=== PATIENT | female | born 1975 ===

== ENCOUNTER 2017-07-06 08:31 | Inpatient (IN) | payer MEDICAID ==
[2017-07-06 08:43] VITALS: O2SAT 97; BMI 29.2
--- NOTE | 2017-07-06 08:47 | ED PDOC ---
Psych Transfer Clearance - Clearance Statement Clearance Statement: Reviewed vital signs, lab results and transfer papers. Patient clinically stable for psychiatric admission.
[2017-07-06] MEDS ORDERED: Alum-Mag Hydrox-Simethicone Susp (30 mL) PO PRN (09:47)
[2017-07-06] MEDS ORDERED: Magnesium Hydroxide Susp 30 ml UD PO PRN (09:47)
[2017-07-06] MEDS ORDERED: DiphenhydrAMINE 50 mg/ml Inj IM PRN (09:47)
--- NOTE | 2017-07-06 10:28 | PCM.BM ---
<Sharda Romero - Last Filed: 07/06/17 10:26> Treatment assets and liabiliti Patient Assests: cooperative, ADL independent, physically healthy, good past tx response Patient Liabilities: poor support system - Milieu Protocol Maintain good personal hygiene: daily Encourage regular showers, every other day Remind patient to perform daily oral care, every other day Assist patient to perform ADL's Conduct patient checks and document Observation sheet: Q15 minutes Maintain personal safety: every shift Educate patient to report safety concerns to staff, every shift Monitor environment for contraband/sharps Medication safety: Monitor for expected outcome, potential side effects: every shift, Assess barriers to learning: every shift, Assess readiness for medication education: every shift <AllieZeenat - Last Filed: 07/07/17 16:41> Treatment assets and liabiliti Patient Assests: adapts well, cooperative, ADL independent (pt currently unable to tend to ADL's fully independently secondary to acute psychosis) Patient Liabilities: live alone, poor support system Family Contact Family involvement: No known Family/SO (process description writer will continue to meet with patient to obtain necessary family contact info) Family contact: Other (pt unable to provide collateral or contact information for family/social supports) - Outside Agency Agency 1 Care involvment: Following patient during stay, Information-sharing, Other Agency contact name: [facility] [place] [place] [facility] Agency contact number: (Nat Juan)([phone]) Agency 2 Care involvment: Following patient during stay, Information-sharing, Other Agency contact name: [facility] Agency contact number: Dr. Hammond: [phone] Agency 3 Care involvment: Following patient during stay, Information-sharing, Other Agency contact name: [facility] ([place]) Agency contact number: Clemencia Torres(cash shortage investigator)([phone]) - Goals for Treatment Patient goals for treatment: Patient to continue stabilization on 3NP through medication management and group/supportive therapy. Patient to be encouraged to attend groups regularly to promote self-awareness, reality testing, and improve insight, coping skills and self-esteem. Patient to be provided with referral for appropriate level of aftercare to reduce risk of future hospitalizations and ensure safety in the community. Discharge/Continuing Care - Education Needs Education Needs: Patient Medication, Patient Coping Skills, Patient Placement options, Patient Community resources, Patient Aftercare Safety Plan - Discharge Discharge Criteria: Tolerates medication w/o severe side effects, Free of Suicidal thoughts, Free of paranoid thoughts, Free of agitation, Ability to care for self, Reduction of target symptoms Discharge to:: Home, With Family (currently unknown) - Treatment Team Participation Patient/Family/SO Statement: 07/07/17 16:45 Patient attended this mornings tx team to discuss precursors to hospitalization and collect further necessary collateral. Patient presents with sxs of acute psychosis and appears catatonic. Patient presented as internally preoccupied with thought blocking and delayed responses. Insight/Focus grossly impaired. Patient presented as depressed and anxious. Patient denied AH/VH/SI/ HI. Patient required significant engagement/reiteration in order to provide collateral. Patient presented as a poor historian and was not able to engage in reality based discussion or provide tx team with necessary collateral. Patient providing vague, conflicting collateral regarding current housing, social supports or precursors to hospitalization. However, patient did report sometimes forgetting to take medications. Patient reported living alone but having family visiting. Patient unable to elaborate. Patient reported 1 y/o has been placed in [facility] care but repeatedly stated not knowing where her 13 y/o currently is. Patient provided verbal consents for [facility] [place] [place] [facility], [facility] and [facility] but was unable to sign consent forms or tx plan. Patient required RN assistance leaving tx team room and returning to milieu. Discussed with Family/SO: No Was Patient/Family/SO present at Treatment Team Meeting: Yes <Mahogany Escobar - Last Filed: 07/09/17 12:04> - Diagnosis (1) Depression Status: Acute Interventions: psychotherapy pharmacotherapy 07/09/17 12:04
--- NOTE | 2017-07-06 10:40 | PCM.PSYCH ---
Initial Psychiatric Evaluation - Initial Psychiatric Evaluation Type of Admission: Voluntary Legal Status: Capacity Chief Complaint (in patient's own words): "I'm anxious." Patient's Reaction to Hospitalization: HPI: 41 yo female w/ h/o depression w/ psychosis, presents acutely depressed and anxious. On interview, that patient gave limited answers and stared blankly at the property underwriter at times. She denied overt AH/VH/paranoia/delusions, but seems guarded and possibly internally preoccupied. She was unable to state which medications she has taken in the past (as per chart Prozac, Seroquel and Ativan) or if she is being compliant. Denies SI/HI. +sleep/appetite disturbances. PPHx: H/o of outpatient treatment and multiple inpatient hospitalizations for depression w/ psychosis. Patient unable to provided detailed history at this time. PMHx: Denies chronic medical issues ALL: [facility] Current Medications: Active Medications Generic Name Dose Route Start Last Admin Trade Name Freq PRN Reason Stop Dose Admin Acetaminophen 650 mg 07/06/17 09:47 Tylenol 325mg Tab PO Q4 PRN Pain, moderate (4-7) Al Hydrox/Mg Hydrox/Simethicone 30 ml 07/06/17 09:47 Maalox Plus 30 Ml PO Q4 PRN Dyspepsia Diphenhydramine HCl 50 mg 07/06/17 09:47 Benadryl IM Q6 PRN Extrapyramidal S/S Unable PO Diphenhydramine HCl 50 mg 07/06/17 09:47 Benadryl PO Q6 PRN Extrapyramidal Symptoms Haloperidol 5 mg 07/06/17 09:47 Haldol PO Q4 PRN Agitation Haloperidol Lactate 5 mg 07/06/17 09:47 Haldol IM Q4 PRN Agitation, Unable to Take PO Lorazepam 2 mg 07/06/17 09:47 Ativan IM Q4 PRN Anxiety/Agitation,Unable PO Lorazepam 2 mg 07/06/17 09:47 Ativan PO Q4 PRN Anxiety/Agitation Magnesium Hydroxide 30 ml 07/06/17 09:47 Milk Of Magnesia PO HS PRN Constipation Past Psychiatric History - Past Psychiatric History Previous Treatment History: Inpatient Pertinent Medical Hx (Current Medical&Sleep Prob, Allergies): Allergies Allergy/AdvReac Type Severity Reaction Status Date / Time No Known Allergies Allergy Verified 07/05/17 16:39 FLUoxetine [Prozac] 30 mg PO DAILY #30 01/22/17 LORazepam [Ativan] 0.5 mg PO AMHS #30 tab 01/22/17 QUEtiapine [Seroquel] 100 mg PO HS #14 tab 01/22/17 Review of Systems - Psychiatric Psychiatric: Abnormal Sleep Pattern, Anhedonia, Anxiety, Change in Appetite, Depression, Difficulty Concentrating Mental Status Examination - Personal Presentation Personal Presentation: Looks stated age - Affect Affect: Blunted - Motor Activity Motor Activity: Calm - Reliability in Providing Information Reliability in Providing Information: Poor, due to altered mood - Speech Speech: Coherent - Mood Mood: Depressed, Anxious - Formal Thought Process Formal Thought Process: Other (Thought blocking) - Hallucinations/Delusions Additional comments: Denies AH/VH - Obsessions/Compulsions Obsessions: No Compulsions: No - Cognitive Functions Orientation: Person, Place, Situation, Time Sensorium: Alert Estimate of Intelligence: Average Judgement: Imparied, as evidence by: Lack of insight into illness Memory: Recent impaired, as evidence by: Inability to recall events of the day, Remote impaired as evidenced by: Inability to recall sig life events, Remote impaired as evidenced by: Inability to recall historical events - Risk Risk: Diminished functioning - Strength & Assets Inventory Strength & Assets Inventory: Cooperative DSM 5 DX - DSM 5 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 - Recommended/Plan of Treatment Treatment Recommendations and Plan of Treatment: Major Depressive Disorder w/ Psychotic Features -Admit to psychiatry unit -Will restart Prozac 20 mg PO Daily and Seroquel 50 mg PO HS; it is unclear if patient has been compliant with these medications -Obtain collateral history as the patient is a poor historian at this time -Medicine consult -Individual and group therapy -Psychoeducation Projected ELOS: 5-10 days Discharge Plan and Discharge Criteria: Discharge patient when she is psychiatrically stable - Smoking Cessation Smoking Cessation Initiated: No Reason for not providing: Not indicated
[2017-07-07 07:22] LABS: BASO % 0.5 % (0.0-2.0); EOS % 0.2 % (0.0-4.0); HEMOGLOBIN 13.1 g/dL (12.0-16.0); LYMPH # 1.7 K/uL (1.0-4.3); LYMPH % 24.8 % (20.0-40.0); MEAN CORPUSCULAR HEMOGLOBIN 30.5 pg (27.0-31.0); MEAN CORPUSCULAR HGB CONC 33.5 g/dL (33.0-37.0); MEAN PLATELET VOLUME 8.5 fl (7.2-11.7); MONO # 0.3 K/uL (0.0-0.8); MONO % 5.1 % (0.0-10.0); NEUT # 4.7 K/uL (1.8-7.0); NEUT % 69.4 % (50.0-75.0); RBC 4.28 Mil/uL (3.80-5.20); RED CELL DISTRIBUTION WIDTH 13.5 % (11.5-14.5); WHITE BLOOD COUNT 6.7 K/uL (4.8-10.8)
[2017-07-07 07:45] LABS: ALB/GLOB RATIO 1.2 (1.0-2.1); ALBUMIN 3.9 g/dL (3.5-5.0); ALT/SGPT 57 U/L (9-52); AST/SGOT 41 U/L (14-36); BLOOD UREA NITROGEN 8 mg/dl (7-17); GFR AFRICAN-AMERICAN > 60; GFR NON-AFRICAN AMERICAN > 60; HDL CHOLESTEROL 60 MG/DL (30-70)
[2017-07-07 07:57] LABS: LDL CHOLESTEROL 61 mg/dL (0-129)
[2017-07-07 08:02] LABS: T4 10.4 ug/dl (5.5-11.0)
[2017-07-07] MEDS ORDERED: Potassium Chloride 20 mEq ER Tab PO ONE (08:36)
--- NOTE | 2017-07-07 08:40 | CP.PCM.HP ---
History of Present Illness - History of Present Illness History of Present Illness: pt admitted for depression w/ psychotic features. at present pt is calm and cooperative. only complaints is intermittent foot pain. no f/c, n/v/d. bw noted. k3.4 Present on Admission - Present on Admission Any Indicators Present on Admission: No Review of Systems - Musculoskeletal Musculoskeletal: As Per HPI Past Patient History - Infectious Disease Hx of Infectious Diseases: None - Past Medical History & Family History Past Medical History?: No - Past Social History Smoking Status: Never Smoked - CARDIAC Hx Cardiac Disorders: No (denies) Hx Hypertension: No - PULMONARY Hx Respiratory Disorders: No (denies) - NEUROLOGICAL Hx Neurological Disorder: No (denies) - HEENT Hx HEENT Problems: No (denies) - RENAL Hx Chronic Kidney Disease: No (denies) - ENDOCRINE/METABOLIC Hx Endocrine Disorders: No (denies) - HEMATOLOGICAL/ONCOLOGICAL Hx Blood Disorders: No (denies) - INTEGUMENTARY Hx Dermatological Problems: No (denies) - MUSCULOSKELETAL/RHEUMATOLOGICAL Hx Falls: Yes - GASTROINTESTINAL Hx Gastrointestinal Disorders: No (denies) - GENITOURINARY/GYNECOLOGICAL Hx Genitourinary Disorders: No (denies) - PSYCHIATRIC Hx Substance Use: No - SURGICAL HISTORY Hx Surgeries: No (denies) - ANESTHESIA Hx Anesthesia: No Meds Allergies/Adverse Reactions: Allergies Allergy/AdvReac Type Severity Reaction Status Date / Time No Known Allergies Allergy Verified 07/05/17 16:39 Physical Exam - Constitutional Appears: Well, Non-toxic, No Acute Distress - Head Exam Head Exam: ATRAUMATIC, NORMAL INSPECTION, NORMOCEPHALIC - Eye Exam Eye Exam: EOMI, Normal appearance, PERRL Pupil Exam: NORMAL ACCOMODATION, PERRL - ENT Exam ENT Exam: Mucous Membranes Moist, Normal Exam - Neck Exam Neck exam: Positive for: Normal Inspection - Respiratory Exam Respiratory Exam: Clear to Auscultation Bilateral, NORMAL BREATHING PATTERN - Cardiovascular Exam Cardiovascular Exam: REGULAR RHYTHM, RRR, +S1, +S2 - GI/Abdominal Exam GI & Abdominal Exam: Normal Bowel Sounds, Soft. absent: Tenderness - Extremities Exam Extremities exam: Positive for: full ROM, normal capillary refill, normal inspection, pedal pulses present - Back Exam Back exam: NORMAL INSPECTION - Neurological Exam Neurological exam: Alert, CN II-XII Intact, Normal Gait, Oriented x3, Reflexes Normal - Psychiatric Exam Psychiatric exam: Normal Affect, Normal Mood - Skin Skin Exam: Dry, Intact, Normal Color, Warm Results - Vital Signs Recent Vital Signs: Last Vital Signs Temp 98 F 07/06/17 08:37 Pulse 94 H 07/06/17 08:37 Resp BP 143/80 07/06/17 08:37 Pulse Ox 97 07/06/17 08:37 - Labs Result Diagrams: 07/07/17 04:00 07/07/17 06:45 Labs: Laboratory Results - last 24 hr 07/07/17 07/07/17 04:00 06:45 WBC 6.7 RBC 4.28 Hgb 13.1 Hct 39.0 MCV 91.0 MCH 30.5 MCHC 33.5 RDW 13.5 Plt Count 244 MPV 8.5 Neut % (Auto) 69.4 Lymph % (Auto) 24.8 Real % (Auto) 5.1 Eos % (Auto) 0.2 Baso % (Auto) 0.5 Neut # (Auto) 4.7 Lymph # (Auto) 1.7 Real # (Auto) 0.3 Eos # (Auto) 0.0 Baso # (Auto) 0.0 Sodium 142 Potassium 3.4 L Chloride 98 Carbon Dioxide 28 Anion Gap 19 BUN 8 Creatinine 0.5 L Est GFR ( Amer) > 60 Est GFR (Non-Af Amer) > 60 Random Glucose 102 Calcium 9.0 Total Bilirubin 1.2 AST 41 H D ALT 57 H Alkaline Phosphatase 84 Total Protein 7.2 Albumin 3.9 Globulin 3.3 Albumin/Globulin Ratio 1.2 Triglycerides 44 Cholesterol 143 LDL Cholesterol Direct 61 HDL Cholesterol 60 Thyroxine (T4) 10.4 TSH 3rd Generation 1.15 Assessment & Plan (1) Severe depressive episode with psychotic symptoms in period Assessment and Plan: psych meds, interventions, therapies Status: Acute (2) Suicidal ideation Assessment and Plan: psych meds, interventions, therapies Status: Acute (3) Foot pain, bilateral Assessment and Plan: tylenol prn, will monitor Status: Acute Decision To Admit - Pt Status Changed To: Hospital Disposition Of: Inpatient - Admit Certification Admit to Inpatient:: After my assessment, the patient will require hospitalization for at least two midnights. This is because of the severity of symptoms shown, intensity of services needed, and/or the medical risk in this patient being treated as an outpatient. - . Bed Request Type: Adult Psychiatry Admitting Physician: Jessica Luna
--- NOTE | 2017-07-07 14:54 | PCM.PYCHPN ---
Psychiatric Progress Note - Psychiatric Progress Note Patient seen today, length of contact: pt evaluated discussed with team chart reviewed Patient Chief Complaint: I am sad, I do not know where my children are Problems Identified/Issues Discussed: pt evaluated with the treatment team, pt dressed in hospital gown, not attending to her personal hygiene, pt with poor eye contact, appears internally preoccupied, pt reported feeling very sad and anxious, pt thought process not goal directed and she states she does not know where her children are and that is why she is sad, pt unable to provide a lot of information, with thought blocking she denied any current suicidal or homicidal ideations she denied any command hallucinations encouraged pt to attend groups and to participate in treatment 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 Medication Change: Yes (start abilify) Medical Record Reviewed: Yes Mental Status Examination - Cognitive Function Orientation: Person, Place, Situation, Time Attention: Poor Concentration: Poor Association: Loose Fund of Knowledge: Poor Decription of patient's judgement and insights: poor insight and judgement - Mood Mood: Depressed, Anxious - Affect Affect: Constricted, Blunted, Depressed - Speech Speech: Soft - Formal Thought Process Formal Thought Process: Circumstantial, Other (Thought blocking) Psychotic Thoughts and Behaviors: thought blocking , internally preoccupied Additional comments: pt denied any current command hallucinations - Suicidal Ideation Suicidal Ideation: No - Homicidal Ideation Homicidal Ideation: No Goal/Treatment Plan - Goal/Treatment Plan Need for Continued Stay: Severe depression anxiety Progress Toward Problem(s) and Goals/Treatment Plan: discontincontinue with prozac 20mg start abilify 5mg with plan to uptitrate encourage medication compliance encourage to attend groups Estimated Date of D/C: 07/18/17
--- NOTE | 2017-07-08 17:52 | PCM.PYCHPN ---
Psychiatric Progress Note - Psychiatric Progress Note Patient seen today, length of contact: pt evaluated discussed with team chart reviewed Patient Chief Complaint: I miss my children Problems Identified/Issues Discussed: pt on evaluation more kempt and less disheveled. pt less isolative, continues to present with depressed mood and affect, poor eye contact underproductive speech, pt observed attending groups, staff reported decreased sleep but no changes in appetite, pt at times appears internally preoccupied, denied any current suicidal or homicidal ideations denied perceptual disturbances no reported side effects of medications discussed pt with treating outpatient psychiatrist,from [facility] and collateral information obtained upon pt consent DSM 5 Symptoms Update: major depression recurrent with psychotic features Medication Change: Yes (increase abilify) Medical Record Reviewed: Yes Mental Status Examination - Cognitive Function Orientation: Person, Place, Situation, Time Attention: Poor Concentration: Poor Association: Loose Fund of Knowledge: Poor Decription of patient's judgement and insights: poor insight and judgement - Mood Mood: Depressed, Anxious - Affect Affect: Constricted, Blunted, Depressed - Speech Speech: Soft - Formal Thought Process Formal Thought Process: Circumstantial, Other (Thought blocking) Psychotic Thoughts and Behaviors: thought blocking , internally preoccupied - Suicidal Ideation Suicidal Ideation: No - Homicidal Ideation Homicidal Ideation: No Goal/Treatment Plan - Goal/Treatment Plan Need for Continued Stay: Severe depression anxiety Progress Toward Problem(s) and Goals/Treatment Plan: continue with prozac 20mg increase abilifyto 5mg BID encourage medication compliance encourage to attend groups Estimated Date of D/C: 07/18/17
--- NOTE | 2017-07-09 15:57 | PCM.PYCHPN ---
Psychiatric Progress Note - Psychiatric Progress Note Patient seen today, length of contact: pt evaluated discussed with team chart reviewed Patient Chief Complaint: I am a little better Problems Identified/Issues Discussed: pt on evaluation , seen on the unit less isolative interacting with other patients speech more productive, continues to have episodes of thought blocking and starring, , continues to be tearful when talking about her children, discussed with pt srting effexor and discontinuing prozac , pt agreed pt attending groups, compliant with medications, denied any current suicidal or homicidal ideations, denied command hallucinations DSM 5 Symptoms Update: major depression with psychotic features Medication Change: Yes (start effexor) Medical Record Reviewed: Yes Mental Status Examination - Cognitive Function Orientation: Person, Place, Situation, Time Attention: Poor Concentration: Poor Association: Loose Fund of Knowledge: Poor Decription of patient's judgement and insights: poor insight and judgement - Mood Mood: Depressed, Anxious - Affect Affect: Constricted, Blunted, Depressed - Speech Speech: Soft - Formal Thought Process Formal Thought Process: Circumstantial, Other (Thought blocking) Psychotic Thoughts and Behaviors: thought blocking , internally preoccupied - Suicidal Ideation Suicidal Ideation: No - Homicidal Ideation Homicidal Ideation: No Goal/Treatment Plan - Goal/Treatment Plan Need for Continued Stay: Severe depression anxiety Progress Toward Problem(s) and Goals/Treatment Plan: discontinue prozac , effexor xr 37.5mg with plan to uptitrate, abilify 5mg BID Group and supportive therapy Estimated Date of D/C: 07/18/17
--- NOTE | 2017-07-10 14:47 | PCM.PYCHPN ---
Psychiatric Progress Note - Psychiatric Progress Note Patient seen today, length of contact: pt evaluated discussed with team chart reviewed Patient Chief Complaint: I am better but I get sleepy during the day Problems Identified/Issues Discussed: pt on evaluation , seen on the unit less isolative interacting with other patients speech more productive, pt reported drowsiness as sude effect of abilify, discussed with pt taking her abilify qhs for less sedation during the day pt continues to have episodes of thought blocking and starring, , continues to be tearful when talking about her children, discussed with pt increasing effexor pt attending groups, compliant with medications, denied any current suicidal or homicidal ideations, denied command hallucinations 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 Medication Change: Yes (increase effexor) Medical Record Reviewed: Yes Mental Status Examination - Cognitive Function Orientation: Person, Place, Situation, Time Attention: Poor Concentration: Poor Association: Loose Fund of Knowledge: Poor Decription of patient's judgement and insights: poor insight and judgement - Mood Mood: Depressed, Anxious - Affect Affect: Constricted, Blunted, Depressed - Speech Speech: Soft - Formal Thought Process Formal Thought Process: Circumstantial, Other (Thought blocking) Psychotic Thoughts and Behaviors: thought blocking , internally preoccupied - Suicidal Ideation Suicidal Ideation: No - Homicidal Ideation Homicidal Ideation: No Goal/Treatment Plan - Goal/Treatment Plan Need for Continued Stay: Severe depression anxiety Progress Toward Problem(s) and Goals/Treatment Plan: increase , effexor xr to 75mg with plan to uptitrate, abilify 10mg qhs Group and supportive therapy Estimated Date of D/C: 07/18/17
[2017-07-11] MEDS: Venlafaxine 75 mg ER Cap PO SCH (08:16)
[2017-07-11] MEDS: Risperidone M tab 0.5MG PO SCH ×2 (12:57→22:05)
--- NOTE | 2017-07-11 13:19 | PCM.PYCHPN ---
Psychiatric Progress Note - Psychiatric Progress Note Patient seen today, length of contact: pt evaluated discussed with team chart reviewed Patient Chief Complaint: I am worried about my children Problems Identified/Issues Discussed: pt evaluated with translation, pt continues to present with depressed mood and affect, tearful when talking about her children, feeling worried about them, pt however paranoid , suspicous towards staff feeling her privacy intruded when interviewed, pt also presenting with thought blocking and appears internally preoccupied, she denied any current command hallucinations, denied any current suicidal or homicidal ideations pt attending groups, compliant with medications, no current reported side effects DSM 5 Symptoms Update: major depression severe with psychotic features Medication Change: Yes (d/c abilify start risperidone) Medical Record Reviewed: Yes Mental Status Examination - Cognitive Function Orientation: Person, Place, Situation, Time Attention: Poor Concentration: Poor Association: Loose Fund of Knowledge: Poor Decription of patient's judgement and insights: poor insight and judgement - Mood Mood: Depressed, Anxious - Affect Affect: Constricted, Blunted, Depressed - Speech Speech: Soft - Formal Thought Process Formal Thought Process: Circumstantial, Other (Thought blocking) Psychotic Thoughts and Behaviors: thought blocking , internally preoccupied, denied command hallucinations - Suicidal Ideation Suicidal Ideation: No - Homicidal Ideation Homicidal Ideation: No Goal/Treatment Plan - Goal/Treatment Plan Need for Continued Stay: Severe depression anxiety Progress Toward Problem(s) and Goals/Treatment Plan: effexor xr 75mg with plan to uptitrate, discontinue abilify, start risperidone 0.5mg bid group and supportive therapy monitor pt for psychopharmacological effects and side effect profile Estimated Date of D/C: 07/18/17
[2017-07-12] MEDS: Risperidone M tab 0.5MG PO SCH ×2 (09:54→21:27)
[2017-07-12] MEDS: Venlafaxine 75 mg ER Cap PO SCH (09:54)
--- NOTE | 2017-07-12 15:48 | PCM.PYCHPN ---
Psychiatric Progress Note - Psychiatric Progress Note Patient seen today, length of contact: pt evaluated discussed with team chart reviewed Patient Chief Complaint: I miss my son Problems Identified/Issues Discussed: pt evaluated pt continues to present with depressed mood and affect, tearful when talking about her children, feeling worried about them, pt continues to be guarded and paranoid pt also presenting with thought blocking and appears internally preoccupied, she denied any current command hallucinations, denied any current suicidal or homicidal ideations pt attending groups, compliant with medications, no current reported side effects 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 Medication Change: No Medical Record Reviewed: Yes Mental Status Examination - Cognitive Function Orientation: Person, Place, Situation, Time Attention: Poor Concentration: Poor Association: Loose Fund of Knowledge: Poor Decription of patient's judgement and insights: poor insight and judgement - Mood Mood: Depressed, Anxious - Affect Affect: Constricted, Blunted, Depressed - Speech Speech: Soft - Formal Thought Process Formal Thought Process: Circumstantial, Other (Thought blocking) Psychotic Thoughts and Behaviors: thought blocking , internally preoccupied, denied command hallucinations - Suicidal Ideation Suicidal Ideation: No - Homicidal Ideation Homicidal Ideation: No Goal/Treatment Plan - Goal/Treatment Plan Need for Continued Stay: Severe depression anxiety Progress Toward Problem(s) and Goals/Treatment Plan: effexor xr 75mg with plan to uptitrate, risperidone 0.5mg bid group and supportive therapy monitor pt for psychopharmacological effects and side effect profile Estimated Date of D/C: 07/18/17
--- NOTE | 2017-07-13 10:10 | PCM.PYCHPN ---
Psychiatric Progress Note - Psychiatric Progress Note Patient seen today, length of contact: pt evaluated discussed with team chart reviewed Patient Chief Complaint: I need pampers, I think I am leaking Problems Identified/Issues Discussed: pt evaluated pt continues to present with depressed mood and affect, tearful when talking about her children, feeling worried about them, pt continues to be guarded and paranoid pt also presenting with thought blocking and appears internally preoccupied, discussed gradual increasing the dose of risperidone she denied any current command hallucinations, denied any current suicidal or homicidal ideations pt also reported leaking of urine with possible UTI discussed with pt having aurinanalysis pt attending groups, compliant with medications, no current reported side effects DSM 5 Symptoms Update: major depression with psychosis Medication Change: Yes (increase risperidone) Medical Record Reviewed: Yes Mental Status Examination - Cognitive Function Orientation: Person, Place, Situation, Time Attention: WNL Concentration: Poor Association: Loose Fund of Knowledge: Poor Decription of patient's judgement and insights: poor insight and judgement - Mood Mood: Depressed, Anxious - Affect Affect: Constricted, Blunted, Depressed - Speech Speech: Soft - Formal Thought Process Formal Thought Process: Circumstantial, Other (Thought blocking) Psychotic Thoughts and Behaviors: thought blocking , internally preoccupied, denied command hallucinations - Suicidal Ideation Suicidal Ideation: No - Homicidal Ideation Homicidal Ideation: No Goal/Treatment Plan - Goal/Treatment Plan Need for Continued Stay: Severe depression anxiety Progress Toward Problem(s) and Goals/Treatment Plan: effexor xr 75mg with plan to uptitrate, increase risperidone to 1.5mg qhs and 0.5mg daily group and supportive therapy monitor pt for psychopharmacological effects and side effect profile Estimated Date of D/C: 07/18/17
[2017-07-13] MEDS: Venlafaxine 75 mg ER Cap PO SCH (10:22)
[2017-07-13] MEDS: Risperidone M tab 0.5MG PO SCH (10:46)
[2017-07-13 16:38] LABS: SQUAMOUS EPITHIAL 11 /hpf (0-5); URINE AMORPHOUS SEDIMENT OCC /ul (<OCC); URINE BILIRUBIN NEGATIVE (NEGATIVE); URINE BLOOD NEGATIVE (NEGATIVE); URINE CLARITY TURBID (Clear); URINE COLOR YELLOW (YELLOW); URINE GLUCOSE (UA) NEG (Normal); URINE LEUKOCYTE ESTERASE NEG Leu/uL (Negative); URINE PROTEIN NEGATIVE (NEGATIVE)
[2017-07-13] MEDS: Risperidone M tab 1 MG PO SCH (21:55)
[2017-07-14] MEDS: Risperidone M tab 0.5MG PO SCH (09:07)
[2017-07-14] MEDS: Venlafaxine 75 mg ER Cap PO SCH (09:08)
[2017-07-14 14:00] LABS: SQUAMOUS EPITHIAL 11 /hpf (0-5); URINE BACTERIA RARE (<OCC); URINE BILIRUBIN NEGATIVE (NEGATIVE); URINE BLOOD NEGATIVE (NEGATIVE); URINE CLARITY CLOUDY (Clear); URINE COLOR YELLOW (YELLOW); URINE GLUCOSE (UA) >=500 mg/dL (Normal); URINE LEUKOCYTE ESTERASE NEG Leu/uL (Negative); URINE PROTEIN NEGATIVE (NEGATIVE)
--- NOTE | 2017-07-14 14:30 | PCM.PYCHPN ---
Psychiatric Progress Note - Psychiatric Progress Note Patient seen today, length of contact: pt evaluated discussed with team chart reviewed Patient Chief Complaint: I have a lot to work on with my family when I leave here Problems Identified/Issues Discussed: pt evaluated with treatment team, reported feeling dizzy, pt noted to have UTI , will be started on antibiotics after C/S is done as discussed withfamily practice, pt continues to present with depressed mood and affect, tearful when talking about her children, feeling worried about them, continues to have episodes of thought blocking, and she appears at times internally preoccupied she denies command hallucinations, risperidone increased to 1.5mg qhs, will uptitrate as needed, also will decrease trazodone to 50mg qhs DSM 5 Symptoms Update: major depression severe with psychotic features Medication Change: Yes (decrease trazodone) Medical Record Reviewed: Yes Mental Status Examination - Cognitive Function Orientation: Person, Place, Situation, Time Attention: WNL Concentration: Poor Association: Loose Fund of Knowledge: Poor Decription of patient's judgement and insights: poor insight and judgement - Mood Mood: Depressed, Anxious - Affect Affect: Constricted, Blunted, Depressed - Speech Speech: Soft - Formal Thought Process Formal Thought Process: Circumstantial, Other (Thought blocking) Psychotic Thoughts and Behaviors: thought blocking , internally preoccupied, denied command hallucinations - Suicidal Ideation Suicidal Ideation: No - Homicidal Ideation Homicidal Ideation: No Goal/Treatment Plan - Goal/Treatment Plan Need for Continued Stay: Severe depression anxiety, Discharge may exacerbated symptoms Progress Toward Problem(s) and Goals/Treatment Plan: effexor xr 75mg with plan to uptitrate, continue risperidone to 1.5mg qhs and 0.5mg daily decrease trazodone to 50mg qhs for possible orthostatic hypotension follow up on urine culture and sensitivity group and supportive therapy monitor pt for psychopharmacological effects and side effect profile Estimated Date of D/C: 07/18/17
--- NOTE | 2017-07-14 16:16 | PCM.BM ---
<Zeenat Kelley - Last Filed: 07/14/17 16:12> Treatment assets and liabiliti Patient Assests: adapts well, cooperative, ADL independent (pt currently unable to tend to ADL's fully independently secondary to acute psychosis) Patient Liabilities: live alone, poor support system - Milieu Protocol Maintain good personal hygiene: daily Encourage regular showers, every other day Remind patient to perform daily oral care, every other day Assist patient to perform ADL's Conduct patient checks and document Observation sheet: Q15 minutes Maintain personal safety: every shift Educate patient to report safety concerns to staff, every shift Monitor environment for contraband/sharps Medication safety: Monitor for expected outcome, potential side effects: every shift, Assess barriers to learning: every shift, Assess readiness for medication education: every shift Milieu Narrative: effexor xr 75mg with plan to uptitrate, continue risperidone to 1.5mg qhs and 0.5mg daily decrease trazodone to 50mg qhs for possible orthostatic hypotension follow up on urine culture and sensitivity group and supportive therapy monitor pt for psychopharmacological effects and side effect profile Family Contact Family involvement: No known Family/SO (copy writer will continue to meet with patient to obtain necessary family contact info) Family contact: Other (pt unable to provide collateral or contact information for family/social supports) - Outside Agency Agency 1 Care involvment: Following patient during stay, Information-sharing, Other Agency contact name: [facility] Agency contact number: Funmi Juan)([phone]) Agency 2 Care involvment: Following patient during stay, Information-sharing, Other Agency contact name: [facility] Agency contact number: Dr. Hammond: [phone] Agency 3 Care involvment: Following patient during stay, Information-sharing, Other Agency contact name: [facility] (Jen) Agency contact number: Clemencia Torres(case investigator)([phone]) - Goals for Treatment Patient goals for treatment: Patient to continue stabilization on 3NP through medication management and group/supportive therapy. Patient to be encouraged to attend groups regularly to promote self-awareness, reality testing, and improve insight, coping skills and self-esteem. Patient to be provided with referral for appropriate level of aftercare to reduce risk of future hospitalizations and ensure safety in the community. Discharge/Continuing Care - Education Needs Education Needs: Patient Medication, Patient Coping Skills, Patient Placement options, Patient Community resources, Patient Aftercare Safety Plan - Discharge Discharge Criteria: Tolerates medication w/o severe side effects, Free of Suicidal thoughts, Free of paranoid thoughts, Free of agitation, Ability to care for self, Reduction of target symptoms Discharge to:: Home, With Family (currently unknown) - Treatment Team Participation Patient/Family/SO Statement: effexor xr 75mg with plan to uptitrate, continue risperidone to 1.5mg qhs and 0.5mg daily decrease trazodone to 50mg qhs for possible orthostatic hypotension follow up on urine culture and sensitivity group and supportive therapy monitor pt for psychopharmacological effects and side effect profile Discussed with Family/SO: No Was Patient/Family/SO present at Treatment Team Meeting: Yes Treatment Plan Review Patient participation: Yes Family/SO/Caregiver participation: No Additional Comments: Patient has show some improvement but remains acutely psychotic. Patient presents as internally preoccupied. Patient presents with thought blocking and delayed responses. Patient irritable and suspicious on approach. patient visible on 3NP but socially withdrawn. Patient reports auditory hallucinations but was unable to elaborate on nature of AH, staring blankly at copy writer for several minutes when asked. Patient reports improvement in appetite since admission. Patient denies sleep disturbances Patient denies SI/HI and is able to contract for safety on 3NP. Patient made aware of staff availability. Patient continues to have difficulties fully engaging in reality based discussion. When asked how 3 staff/tx can help patient, patient responded with "I have to go to [place] things. Because things happened." but declined to elaborate. Patient to continue stabilization on 3NP through medication management and group/supportive therapy. Patient to be encouraged to attend groups regularly to promote self-awareness, sobriety, and improve insight , coping skills and self-esteem. Patient to be provided with referral for appropriate level of aftercare to reduce risk of future hospitalizations and ensure safety in the community. - Discharge / Continuing Care Discharge to:: Home Behavioral Health Services: Outpatient therapy, Other ([facility] and [facility]) Health Needs: Follow up care/test <Mahogany Escobar - Last Filed: 07/18/17 11:15> - Diagnosis (1) Depression Status: Acute Interventions: psychotherapy pharmacotherapy 07/18/17 11:15
[2017-07-14] MEDS: Risperidone M tab 1 MG PO SCH (21:47)
[2017-07-15] MEDS: Risperidone M tab 0.5MG PO SCH (10:40)
[2017-07-15] MEDS: Venlafaxine 75 mg ER Cap PO SCH (10:40)
--- NOTE | 2017-07-15 12:47 | PCM.PYCHPN ---
Psychiatric Progress Note - Psychiatric Progress Note Patient seen today, length of contact: pt evaluated discussed with team chart reviewed Patient Chief Complaint: I do not need to be here I am not creazy Problems Identified/Issues Discussed: pt evaluated with treatment team, presenting with irritable mood and affect, poor insight into illness requesting discharge, reporting only reason she is in hospital is because of arm pain, patient argumentative about medications, stating there is no need to be on them, pt delusional paranoid towards staff, continues to have thought blocking, denied command hallucinations denied suicidal or homicidal ideations 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 Medication Change: Yes (increase risperidone) Medical Record Reviewed: Yes Mental Status Examination - Cognitive Function Orientation: Person, Place, Situation, Time Attention: WNL Concentration: Poor Association: Loose Fund of Knowledge: Poor Decription of patient's judgement and insights: poor insight and judgement - Mood Mood: Depressed, Anxious - Affect Affect: Constricted, Blunted, Depressed - Speech Speech: Soft - Formal Thought Process Formal Thought Process: Circumstantial, Other (Thought blocking) Psychotic Thoughts and Behaviors: thought blocking , internally preoccupied, denied command hallucinations - Suicidal Ideation Suicidal Ideation: No - Homicidal Ideation Homicidal Ideation: No Goal/Treatment Plan - Goal/Treatment Plan Need for Continued Stay: Severe depression anxiety, Discharge may exacerbated symptoms Progress Toward Problem(s) and Goals/Treatment Plan: effexor xr 75mg with plan to uptitrate, increase risperidone to 2mg qhs and 0.5mg daily change trazodoneo 50mg qhs to prn for possible orthostatic hypotension follow up on urine culture and sensitivity group and supportive therapy monitor pt for psychopharmacological effects and side effect profile Estimated Date of D/C: 07/18/17
[2017-07-15] MEDS ORDERED: Risperidone M TAB 2 MG PO SCH (22:00)
[2017-07-16] MEDS: Venlafaxine 75 mg ER Cap PO SCH (08:47)
--- NOTE | 2017-07-16 08:56 | CP.PCM.PN ---
Subjective - Date & Time of Evaluation Date of Evaluation: 07/16/17 Time of Evaluation: 08:56 - Subjective Subjective: pt still psychotic. no f/c, n./v/d. pt had dysuria but no further complaints. ua wnl. c/s pending. pt c/o dizziness and left shoulder pain both has been present x yrs. pt haivng 1x episde of dizziness during eval rn for translation Objective - Vital Signs/Intake and Output Vital Signs (last 24 hours): Temp Pulse Resp BP Pulse Ox 97.3 F L 94 H 20 136/72 97 07/15/17 17:00 07/15/17 17:00 07/15/17 17:00 07/15/17 17:00 07/06/17 08:37 - Medications Medications: Current Medications Acetaminophen (Tylenol 325mg Tab) 650 mg PO Q4 PRN PRN Reason: Pain, moderate (4-7) Al Hydrox/Mg Hydrox/Simethicone (Maalox Plus 30 Ml) 30 ml PO Q4 PRN PRN Reason: Dyspepsia Diphenhydramine HCl (Benadryl) 50 mg IM Q6 PRN PRN Reason: Extrapyramidal S/S Unable PO Diphenhydramine HCl (Benadryl) 50 mg PO Q6 PRN PRN Reason: Extrapyramidal Symptoms Haloperidol (Haldol) 5 mg PO Q4 PRN PRN Reason: Agitation Haloperidol Lactate (Haldol) 5 mg IM Q4 PRN PRN Reason: Agitation, Unable to Take PO Lorazepam (Ativan) 2 mg IM Q4 PRN PRN Reason: Anxiety/Agitation,Unable PO Lorazepam (Ativan) 1 mg PO Q4 PRN PRN Reason: Anxiety Last Admin: 07/06/17 16:48 Dose: 1 mg Magnesium Hydroxide (Milk Of Magnesia) 30 ml PO HS PRN PRN Reason: Constipation Risperidone (Risperdal M-Tab) 2 mg PO HS [facility] Last Admin: 07/15/17 21:05 Dose: 2 mg Risperidone (Risperdal M-Tab) 1 mg PO DAILY [facility] Last Admin: 07/16/17 08:47 Dose: 1 mg Trazodone HCl (Desyrel) 50 mg PO HS [facility] Last Admin: 07/15/17 21:05 Dose: 50 mg Venlafaxine HCl (Effexor Xr) 75 mg PO DAILY [facility] Last Admin: 07/16/17 08:47 Dose: 75 mg - Labs Labs: 07/07/17 04:00 07/07/17 06:45 - Constitutional Appears: Well, Non-toxic, No Acute Distress - Head Exam Head Exam: ATRAUMATIC, NORMAL INSPECTION, NORMOCEPHALIC - Eye Exam Eye Exam: EOMI, Normal appearance, PERRL Pupil Exam: NORMAL ACCOMODATION, PERRL - ENT Exam ENT Exam: Mucous Membranes Moist, Normal Exam - Neck Exam Neck Exam: Full ROM, Normal Inspection. absent: Lymphadenopathy - Respiratory Exam Respiratory Exam: Clear to Ausculation Bilateral, NORMAL BREATHING PATTERN - Cardiovascular Exam Cardiovascular Exam: REGULAR RHYTHM, RRR, +S1, +S2. absent: Murmur - GI/Abdominal Exam GI & Abdominal Exam: Soft, Normal Bowel Sounds. absent: Tenderness - Extremities Exam Extremities Exam: Full ROM, Normal Capillary Refill, Normal Inspection. absent : Joint Swelling, Pedal Edema - Back Exam Back Exam: NORMAL INSPECTION - Neurological Exam Neurological Exam: Alert, Awake, CN II-XII Intact, Normal Gait, Oriented x3 - Psychiatric Exam Psychiatric exam: Normal Affect, Normal Mood - Skin Skin Exam: Dry, Intact, Normal Color, Warm Assessment and Plan (1) Severe depressive episode with psychotic symptoms in period Status: Acute (2) Suicidal ideation Status: Acute (3) Foot pain, bilateral Status: Acute - Assessment and Plan (Free Text) Assessment: (1) Severe depressive episode with psychotic symptoms in period Assessment and Plan: psych meds, interventions, therapies Status: Acute (2) Suicidal ideation Assessment and Plan: psych meds, interventions, therapies Status: Acute (3) Foot pain, bilateral Assessment and Plan: tylenol prn, will monitor Status: Acute 4-dizziness- f/u labs, neuro prn ?? neurogenic vs organic [id number] wnl, penidng c/s no further s/s
[2017-07-16] MEDS ORDERED: Risperidone M tab 1 MG PO SCH (09:00)
[2017-07-16 12:56] LABS: BASO % 0.6 % (0.0-2.0); EOS % 0.5 % (0.0-4.0); HEMOGLOBIN 14.1 g/dL (12.0-16.0); LYMPH # 1.6 K/uL (1.0-4.3); LYMPH % 33.2 % (20.0-40.0); MEAN CELL VOLUME 89.6 fl (81.0-99.0); MEAN CORPUSCULAR HEMOGLOBIN 30.8 pg (27.0-31.0); MEAN CORPUSCULAR HGB CONC 34.4 g/dL (33.0-37.0); MONO # 0.2 K/uL (0.0-0.8); NEUT # 2.9 K/uL (1.8-7.0); NEUT % 61.7 % (50.0-75.0); NRBC % 0.2 % (0.0-0.0); RBC 4.58 Mil/uL (3.80-5.20); RED CELL DISTRIBUTION WIDTH 13.1 % (11.5-14.5); WHITE BLOOD COUNT 4.7 K/uL (4.8-10.8)
[2017-07-16 13:06] LABS: ALB/GLOB RATIO 1.1 (1.0-2.1); ALBUMIN 4.3 g/dL (3.5-5.0); ALT/SGPT 43 U/L (9-52); AST/SGOT 23 U/L (14-36); BLOOD UREA NITROGEN 12 mg/dl (7-17); CALCIUM 9.6 mg/dL (8.4-10.2); GFR AFRICAN-AMERICAN > 60; GFR NON-AFRICAN AMERICAN > 60
--- NOTE | 2017-07-16 13:19 | PCM.PYCHPN ---
Psychiatric Progress Note - Psychiatric Progress Note Patient seen today, length of contact: pt evaluated discussed with team chart reviewed Patient Chief Complaint: I do not want to answer Problems Identified/Issues Discussed: pt evaluated , floridaly psychotic, guarded paranoid, evasive poor eye contact , minimal speech, refusing to communicate with staff , pt appears internally preoccupied, with thought blocking , disorganized thought process and poor insight into illness denied command hallucinations denied suicidal or homicidal ideations pt encouraged to attend groups pt continues to have urine incontinence , awaiting results of culture and sensitivity for family practice to start antibiotics, with possible contribution of UTI in the current psychotic mental status DSM 5 Symptoms Update: schizoaffective disorder Medication Change: Yes (discontinue risperidone start haldol) Medical Record Reviewed: Yes Mental Status Examination - Cognitive Function Orientation: Person, Place, Situation, Time Attention: WNL Concentration: Poor Association: Loose Fund of Knowledge: Poor Decription of patient's judgement and insights: poor insight and judgement - Mood Mood: Depressed, Anxious - Affect Affect: Constricted, Blunted, Depressed - Speech Speech: Soft - Formal Thought Process Formal Thought Process: Circumstantial, Other (Thought blocking) Psychotic Thoughts and Behaviors: thought blocking , internally preoccupied, denied command hallucinations - Suicidal Ideation Suicidal Ideation: No - Homicidal Ideation Homicidal Ideation: No Goal/Treatment Plan - Goal/Treatment Plan Need for Continued Stay: Severe depression anxiety, Discharge may exacerbated symptoms Progress Toward Problem(s) and Goals/Treatment Plan: discontinue seroquel and effexor start haldol 2mg qhs, cogentin 0.5mg qhs start prozac 20mg follow up on urine culture and sensitivity group and supportive therapy monitor pt for psychopharmacological effects and side effect profile Estimated Date of D/C: 07/18/17
[2017-07-16] MEDS: FLUoxetine Elix 20 MG/5 ML PO SCH (13:47)
[2017-07-17] MEDS: FLUoxetine Elix 20 MG/5 ML PO SCH (10:20)
--- NOTE | 2017-07-17 14:15 | PCM.PYCHPN ---
Psychiatric Progress Note - Psychiatric Progress Note Patient seen today, length of contact: pt evaluated discussed with team chart reviewed Patient Chief Complaint: I like my breakfast today Problems Identified/Issues Discussed: pt evaluated , continues to be isolative, guarded, not interacting with other peers, needs a lot of encouragement to attend groups,presenting with depressed mood and affect , thought blocking , internally preoccupied, more interactive with undersigned showing partial response to haldol pt denied any current command hallucinations, denied suicidal or homicidal ideations, limited insight into illness DSM 5 Symptoms Update: schizoaffective disorder depressed Medication Change: No Medical Record Reviewed: Yes Mental Status Examination - Cognitive Function Orientation: Person, Place, Situation, Time Attention: WNL Concentration: Poor Association: Loose Fund of Knowledge: Poor Decription of patient's judgement and insights: poor insight and judgement - Mood Mood: Depressed, Anxious - Affect Affect: Constricted, Blunted, Depressed - Speech Speech: Soft - Formal Thought Process Formal Thought Process: Circumstantial, Other (Thought blocking) Psychotic Thoughts and Behaviors: thought blocking , internally preoccupied, denied command hallucinations - Suicidal Ideation Suicidal Ideation: No - Homicidal Ideation Homicidal Ideation: No Goal/Treatment Plan - Goal/Treatment Plan Need for Continued Stay: Severe depression anxiety, Discharge may exacerbated symptoms Progress Toward Problem(s) and Goals/Treatment Plan: increase haldol to 3mg qhs, and cogentin 1 mg qhs. consider haldol decanoate on discharge increase prozac 40mg follow up on urine culture and sensitivity group and supportive therapy monitor pt for psychopharmacological effects and side effect profile Estimated Date of D/C: 07/18/17
--- NOTE | 2017-07-18 13:32 | PCM.PYCHPN ---
Psychiatric Progress Note - Psychiatric Progress Note Patient seen today, length of contact: pt evaluated discussed with team chart reviewed Patient Chief Complaint: I am better when can I go home Problems Identified/Issues Discussed: pt evaluated ,less isolative , speech more productive, better communication with staff and peers, presenting with better mood and brighter affect, thought process more clear, pt less guarded and less paranoid pt requesting discharge as she misses her children , discussed with pt starting haldol injection for better compliance, pt declined pt attending groups, compliant with medication, no reported side effects denied suicidal or homicidal ideations, denied command hallucinations, limited insight into illness DSM 5 Symptoms Update: major depression recurrent severe with psychotic fetures rule out schizoaffective disorder Medication Change: No Medical Record Reviewed: Yes Mental Status Examination - Cognitive Function Orientation: Person, Place, Situation, Time Attention: WNL Concentration: Poor Association: WNL Fund of Knowledge: Poor Decription of patient's judgement and insights: poor insight and judgement - Mood Mood: Depressed, Anxious - Affect Affect: Constricted, Blunted, Depressed - Speech Speech: Soft - Formal Thought Process Formal Thought Process: Circumstantial, Other (Thought blocking) Psychotic Thoughts and Behaviors: tpt presenting with more clear thought process, denied perceptual disturbances - Suicidal Ideation Suicidal Ideation: No - Homicidal Ideation Homicidal Ideation: No Goal/Treatment Plan - Goal/Treatment Plan Need for Continued Stay: Severe depression anxiety, Discharge may exacerbated symptoms Progress Toward Problem(s) and Goals/Treatment Plan: continue with haldol 3mg qhs, and cogentin 1 mg qhs. consider haldol decanoate on discharge increase prozac 30mg daily group and supportive therapy monitor pt for psychopharmacological effects and side effect profile adoption services manager to contact [facility] for follow up planning on discharge Estimated Date of D/C: 07/22/17
[2017-07-18 18:26] VITALS: RESP 18
--- NOTE | 2017-07-19 08:10 | PCM.PYCHPN ---
Psychiatric Progress Note - Psychiatric Progress Note Patient seen today, length of contact: Patient evaluated, chart reviewed Patient Chief Complaint: "I'm depressed." Problems Identified/Issues Discussed: Patient continues to report intermittent feelings of depression and anxiety, due to missing her children, feeling lonely and continuing to be in the hospital. She has improved hygiene and has wider range of affect. She reports that she last heard AH two days ago. No current AH/VH/SI/HI. Medication Change: No Medical Record Reviewed: Yes Consults ordered or reviewed: Medicine consult Mental Status Examination - Cognitive Function Orientation: Person, Place, Situation, Time Memory: Intact Attention: WNL Concentration: Poor Association: WNL Fund of Knowledge: Poor Decription of patient's judgement and insights: Poor I/J - Mood Mood: Depressed, Anxious - Affect Affect: Constricted, Depressed - Speech Speech: Soft - Formal Thought Process Formal Thought Process: Other (Mild thought blocking) Psychotic Thoughts and Behaviors: Denies acute AH/VH/paranoia/delusions - Suicidal Ideation Suicidal Ideation: No - Homicidal Ideation Homicidal Ideation: No Goal/Treatment Plan - Goal/Treatment Plan Need for Continued Stay: Severe depression anxiety, Discharge may exacerbated symptoms Progress Toward Problem(s) and Goals/Treatment Plan: Major Depressive Disorder w/ Psychotic Features; r/o Schizoaffective Disorder -Continue Haldol, Cogentin and Prozac -Individual and group therapy -Disposition planning Estimated Date of D/C: 07/22/17
--- NOTE | 2017-07-20 12:14 | PCM.PYCHPN ---
Psychiatric Progress Note - Psychiatric Progress Note Patient seen today, length of contact: Patient evaluated, chart reviewed Patient Chief Complaint: "I'm okay." Problems Identified/Issues Discussed: Patient reports less depression and anxiety. She is goal oriented towards discharge. She has improved hygiene and has wider range of affect. No current AH/VH/SI/HI. Medication Change: No Medical Record Reviewed: Yes Consults ordered or reviewed: Medicine consult Mental Status Examination - Cognitive Function Orientation: Person, Place, Situation, Time Memory: Intact Attention: WNL Concentration: WNL Association: WNL Fund of Knowledge: [facility] Decription of patient's judgement and insights: Improving I/J - Mood Mood: Anxious - Affect Affect: Constricted - Speech Speech: Soft - Formal Thought Process Formal Thought Process: No Impairment Psychotic Thoughts and Behaviors: Denies acute AH/VH/paranoia/delusions - Suicidal Ideation Suicidal Ideation: No - Homicidal Ideation Homicidal Ideation: No Goal/Treatment Plan - Goal/Treatment Plan Need for Continued Stay: Severe depression anxiety, Discharge may exacerbated symptoms Progress Toward Problem(s) and Goals/Treatment Plan: Major Depressive Disorder w/ Psychotic Features; r/o Schizoaffective Disorder -Continue Haldol, Cogentin and Prozac -Individual and group therapy -Disposition planning Estimated Date of D/C: 07/22/17
--- NOTE | 2017-07-21 14:58 | PCM.PYCHPN ---
Psychiatric Progress Note - Psychiatric Progress Note Patient seen today, length of contact: Patient evaluated, chart reviewed Patient Chief Complaint: I am better Problems Identified/Issues Discussed: pt evaluated with treatment team,,more kempt, , speech more productive, better communication with staff and peers,reported feeling less depressed and less anxious, requesting discharge, brighter affect, thought process more clear, pt less guarded and less paranoid, no reported side effects of haldol discussed with pt increasing prozac to 40mg denied suicidal or homicidal ideations, denied command hallucinations, limited insight into illness 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 Medication Change: Yes (increase prozac to 40mg daily) Medical Record Reviewed: Yes Mental Status Examination - Cognitive Function Orientation: Person, Place, Situation, Time Memory: Intact Attention: WNL Concentration: WNL Association: WNL Fund of Knowledge: WNL - Mood Mood: Anxious - Affect Affect: Constricted - Speech Speech: Soft - Formal Thought Process Formal Thought Process: No Impairment - Suicidal Ideation Suicidal Ideation: No - Homicidal Ideation Homicidal Ideation: No Goal/Treatment Plan - Goal/Treatment Plan Need for Continued Stay: Severe depression anxiety, Discharge may exacerbated symptoms Progress Toward Problem(s) and Goals/Treatment Plan: continue with haldol 3mg qhs, and cogentin 1 mg qhs. increase prozac 40mg daily group and supportive therapy monitor pt for psychopharmacological effects and side effect profile social services to contact [facility] for follow up planning on discharge Estimated Date of D/C: 07/22/17
--- NOTE | 2017-07-22 14:42 | PCM.PYCHPN ---
Psychiatric Progress Note - Psychiatric Progress Note Patient seen today, length of contact: Patient evaluated, chart reviewed Patient Chief Complaint: I am doing well Problems Identified/Issues Discussed: pt evaluated , well groomed, reported better mood, brighter affect, attending groups, and more interactive with staff and other peers, denied side ffects of medications, denied suicidal or homicidal ideations no psychotic symptoms elicited 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 Medication Change: No Medical Record Reviewed: Yes Mental Status Examination - Cognitive Function Orientation: Person, Place, Situation, Time Memory: Intact Attention: WNL Concentration: WNL Association: WNL Fund of Knowledge: WNL - Mood Mood: Anxious - Affect Affect: Constricted - Speech Speech: Soft - Formal Thought Process Formal Thought Process: No Impairment - Suicidal Ideation Suicidal Ideation: No - Homicidal Ideation Homicidal Ideation: No Goal/Treatment Plan - Goal/Treatment Plan Need for Continued Stay: Severe depression anxiety, Discharge may exacerbated symptoms Progress Toward Problem(s) and Goals/Treatment Plan: continue with haldol 3mg qhs, and cogentin 1 mg qhs. prozac 40mg daily group and supportive therapy monitor pt for psychopharmacological effects and side effect profile Estimated Date of D/C: 07/23/17
[2017-07-22 17:30] VITALS: TEMP 97.9
[2017-07-23 08:55] VITALS: BP 130/71; PULSE 76
--- NOTE | 2017-07-23 12:31 | PCM.PYCHDC ---
Mental Status Examination - Mental Status Examination Orientation: Person, Place, Situation Memory: Intact Mood: Neutral Affect: Broad Speech: Appropriate Attention: WNL Concentration: WNL Association: WNL Fund of Knowledge: WNL Formal Thought Process: No Impairment Description of patient's judgement and insight: partial insight and fair judgement Psychotic Thoughts and Behaviors: tpt presenting with more clear thought process, denied perceptual disturbances Suicidal Ideation: No Current Homicidal Ideation?: No Discharge Summary - Discharge Note Reason for Hospitalization: 41 yo female w/ h/o depression w/ psychosis, presents acutely depressed and anxious. On interview, that patient gave limited answers and stared blankly at the content writer at times. She denied overt AH/VH/paranoia/delusions, but seems guarded and possibly internally preoccupied. She was unable to state which medications she has taken in the past (as per chart Prozac, Seroquel and Ativan ) or if she is being compliant. Denies SI/HI. +sleep/appetite disturbances. Consultations:: List each consultation separately and include: 1. Reason for request. 2. Findings. 3. Follow-up Summary of Hospital Course include:: 1. Description of specific treatment plan utilized for patients during their course of treatmen. 2. Summarize the time- course for resolution of acute symptoms and/or regressed behaviors. 3. Describe issues identified and worked on during hospitalization. 4. Describe medication utilized. 5. Describe medical problems identified and treated. 6. Reassessment of suicide risk Summary of Hospital Course: pt on admission was almost catatonic, poor eye contact, underproductive speech, internally preoccupied, pt was started on risperidone with poor response pt was then started on haldol, it was uptitrated to 3mg qhs, pt also was started on prozac, which was uptitrated to 40mg discussed treatment plan with outpatient psychiatrist from [facility] upon pt consent, also meeting was arranged with [facility] AND with [facility], group and supportive therapy provided, pt gradually presented with better mood and brighter affect, thought process more clear with clearing off of the auditory hallucinations No reported or noted side effects of medications , On discharge patient mental status was stable, denied any current suicidal or homicidal ideations denied perceptual disturbances burr picker arranged by social services analyst by [facility] case operator - Diagnosis (1) Depression Current Visit: No Status: Acute - Final Diagnosis (DSM 5) Condition upon Discharge: STABLE DSM 5: major depression recurrent severe with psychotic features Disposition: HOME/ ROUTINE Follow-up Treatment Plan: continue with haldol 3mg qhs, and cogentin 1 mg qhs. prozac 40mg daily group and supportive therapy monitor pt for psychopharmacological effects and side effect profile Prescriptions/Medication Reconciliation: Benztropine [Cogentin] 1 mg PO HS 30 Days #30 tab FLUoxetine [Prozac] 40 mg PO DAILY 30 Days #60 cap Haloperidol [Haldol] 3 mg PO HS 30 Days #90 tab - Antipsychotic Medications Pt discharged on 2 or more routine antipsychotic medications: No
== END 2017-07-23 15:05 | disposition home or self-care (01) | DRG 430 ==
LOC: H.ER 08:31 → H.ERHOLD 08:45 → H.PSYCH 09:21
PROVIDERS: ADMIT Psychiatry & Neurology Psychiatry; ATTEND Psychiatry & Neurology Psychiatry
PROC: GZHZZZZ Group Psychotherapy (ICD-10-PCS; principal; 2017-07-06)
PROC: GZ58ZZZ Individual Psychotherapy, Cognitive-Behavioral (ICD-10-PCS; 2017-07-06)
DX: F33.3 Major depressive disorder, recurrent, severe with psychotic symptoms (principal); R45.851 Suicidal ideations; F06.4 Anxiety disorder due to known physiological condition; N39.0 Urinary tract infection, site not specified; M79.672 Pain in left foot; M79.671 Pain in right foot